=== PATIENT | male | born 1955 | race Caucasian/White ===

== ENCOUNTER → 2017-03-08 | Day surgery (SDC) | payer MEDICARE ==
[~2017-03-08] VITALS: Ht 180.3 cm; Wt 98.2 kg
[~2017-03-08] MED LIST: *morphine SULFATE 8 MG/ML PERIprocedure ONLY ONE; ACETAMINOPHEN/HYDROcodone 325 MG/5 MG TAB PO PRN; BACITRACIN TOP OINT 15 GM TUBE ONE; BELLADONNA ALKALOIDS/OPIUM 60 MG SUPP RECTAL ONE; BELLADONNA ALKALOIDS/OPIUM 60 MG SUPP RECTAL SCH; CHLORHEXIDINE GLUCONATE 2 % 1 PACK (2 CLOTHS) TOPICAL PRN; DO NOT ADM ANY ANTICOAGULANT DRUGS PRN; FLUT50SP EACH NARE; GABA600T PO; INSULIN HUMAN REGULAR 1,000 UNITS/10 ML VIAL SQ PRN; LACTATED RINGER'S 1000 ML IV PRN; LIDOCAINE HCL 1% PF 5 ML AMPULE OTHER ONE; LISI-519 PO; METOPROLOL TARTRATE 25 MG TAB PO PRN; MIDAZOLAM HCL 2 MG/2 ML VIAL IV ONE; MORPHINE SULFATE 2 MG/ML INJ IV PRN; MORPHINE SULFATE 4 MG/ML INJ ONE; OMEP40CA2 PO; ONDANSETRON HCL 4 MG/2 ML VIAL IV PUSH PRN; OXYC15TA PO; POVIDONE IODINE 5% (ANTISEPSIS KIT) 4 APPLICATIONS EACH NARE PRN; PRAV40TA2 PO; PRED10 PO; PROPOFOL 200 MG/20 ML AMP IV ONE; SODIUM CHLORID 0.9% 500 ML IV PRN; TAMS0.4C4 PO; TRIAM.1%T TOPICAL; ceFAZolin 1,000 MG/NS 100 ML IV SCH
[2017-03-08 08:42] LABS: AUTOMATED NEUTROPHIL # 5.7 TH/MM3 (1.8-7.7); BASOPHIL % 0.5 % (0.0-2.0); EOSINOPHIL # 0.3 TH/MM3 (0-0.4); EOSINOPHIL % 3.7 % (0.0-4.0); HEMATOCRIT 34.4 % (39.0-51.0); HEMO FLAGS DIFF FINAL; LYMPH % 21.6 % (9.0-44.0); LYMPHOCYTE # 1.9 TH/MM3 (1.0-4.8); MEAN CELL VOLUME 89.7 FL (80.0-100.0); MEAN CORPUSCULAR HEMOGLOBIN 29.9 PG (27.0-34.0); MEAN CORPUSCULAR HGB CONC 33.3 % (32.0-36.0); MONO % 8.3 % (0.0-8.0); NEUT % 65.9 % (16.0-70.0); PLATELET COUNT 271 TH/MM3 (150-450); RED BLOOD COUNT 3.84 MIL/MM3 (4.50-5.90); RED CELL DISTRIBUTION WIDTH 14.6 % (11.6-17.2); WHITE BLOOD COUNT 8.6 TH/MM3 (4.0-11.0)
--- NOTE | 2017-03-08 10:57 | PD.OP ---
Operative Report Date of Surgery: Mar 08, 2017 Preoperative Diagnosis: Balanitis obliterans with meatal stenosis Postoperative Diagnosis: Same Procedure: Urethral dilatation, cystoscopy, penile biopsy Anesthesia: GERALD Surgeon: Shankar Gavin Commercial Management Accountant(s): None Resident Surgeon: None Operation and Findings: 62-year-old male presents with findings of balanitis obliterans with meatal stenosis. Patient elected to undergo cystoscopy, urethral dilatation with penile biopsy. Risk and benefits were discussed preoperatively he was willing to proceed. She was brought to the operating room and identified by myself as Akhil Grayjajapaula. He is placed in dorsal lithotomy position, prepped and draped in usual sterile fashion, received preprocedure antibiotics and general endotracheal tube anesthesia was position. Urethral dilatation was performed using male sounds starting with a 16 Vincentian up to a 26 Vincentian. Dilatation was unsuccessful. Cystoscopy was then performed demonstrating coaptation being prosthetic lobes with some minor trabeculations within the bladder. No other abnormalities in the bladder were identified. A small penile biopsy was then taken at the area of the right lateral glans. This was then sent to pathology. A 16 Vincentian Morales was inserted with 10 cc in the balloon. Bacitracin ointment was then applied to the meatus. The patient was awoken and extubated and transferred to recovery room in stable condition. He will follow-up tomorrow in the a.m. for a void trial. Shankar Gavin DO Mar 08, 2017 10:57
[2017-03-08 12:50] VITALS: BP 134/79; PULSE 72; RESP 18; TEMP 98.1; O2SAT 99
--- NOTE | 2017-03-08 13:17 | EKG ---
Date Performed: 03/08/2017 Time Performed: 08:01:23 PTAGE: 62 years EKG: Sinus rhythm WITH OCCASIONAL VENTRICULAR PREMATURE COMPLEXES MARKED LEFT AXIS DEVIATION RIGHT BUNDLE BRANCH BLOCK ABNORMAL ECG NO PREVIOUS TRACING DOCTOR: Keven Castrejon Interpretating Date/Time 03/08/2017 13:14:44
== END | disposition home or self-care (01) ==
LOC: HSDC 07:16
PROVIDERS: ATTEND Urology
DX: N35.9 Urethral stricture, unspecified (principal); N48.1 Balanitis; I10 Essential (primary) hypertension
CPT/HCPCS: 00910; 52281; 54100; 85025; 88305; 93005; J0690; J2250; J2270; J3010; J7120